=== PATIENT | male | born 1955 | race Caucasian/White ===

== ENCOUNTER → 2025-05-06 14:22 | Outpatient (REF) | payer MEDICARE, OTHER, SELFPAY | LOC: PAVMRI 14:22 | PROVIDERS: ATTENDING PHYSICIAN Internal Medicine Rheumatology | DX: M47.896 Other spondylosis, lumbar region (principal) | CPT/HCPCS: 72148 ==

== ENCOUNTER 2025-06-14 07:00 | Outpatient (RCR) | payer MEDICARE, OTHER, SELFPAY | END 2025-06-14 23:59 | disposition home or self-care (01) | LOC: RPT 07:00 | PROVIDERS: ATTENDING PHYSICIAN Internal Medicine Rheumatology; FAMILY PHYSICIAN Family Medicine | DX: M47.896 Other spondylosis, lumbar region (principal); M25.562 Pain in left knee; Z73.6 Limitation of activities due to disability; Z96.652 Presence of left artificial knee joint | CPT/HCPCS: 97110; 97140; 97162 ==

== ENCOUNTER 2025-07-20 07:00 | Outpatient (RCR) | payer MEDICARE, OTHER, SELFPAY | END 2025-07-20 23:59 | disposition home or self-care (01) | LOC: RPT 07:00 | PROVIDERS: ATTENDING PHYSICIAN Internal Medicine Rheumatology; FAMILY PHYSICIAN Family Medicine | DX: M47.896 Other spondylosis, lumbar region (principal); M25.562 Pain in left knee; Z73.6 Limitation of activities due to disability; G89.29 Other chronic pain; Z96.652 Presence of left artificial knee joint | CPT/HCPCS: 97010; 97110; 97140 ==